=== PATIENT | male | born 2000 | race Native Hawaiian/Other Pacific Islander ===

== ENCOUNTER 2021-07-15 22:43 | Emergency (ER) | payer OTHER ==
--- NOTE | 2021-07-15 23:16 | ED Physician Documentation ---
History of Present Illness - Stated complaint Stated Complaint: R LEG SWOLLEN - Chief complaint Chief Complaint: Ext Problem - History obtained from History obtained from: Patient - History of Present Illness Timing: Yesterday Pain level now: 0 - Additonal information Additional information: c/o atraumatic RLE swelling distal to right knee down to ankle and foot. He had a large tattoo placed anterior right lower leg (also from just distal to knee down to just proximal to the ankle). Prashant fever. Denies pain, but notes mild paresthesias in foot. Review of Systems Constitutional: reports: Reviewed and negative Cardiac: reports: Pedal edema. denies: Chest pain / pressure, Calf pain Skin: denies: Rash Musculoskeletal: reports: Extremity swelling. denies: Extremity pain PD PAST MEDICAL HISTORY - Past Medical History Past Medical History: No - Past Surgical History Past Surgical History: No - Present Medications Home Medications: Ambulatory Orders Medication Instructions Recorded Confirmed Sulfamethox/Trimeth 800/160 1 each PO BID #14 tablet 07/16/21 [Bactrim Ds 800/160] - Allergies Allergies/Adverse Reactions: Allergies Allergy/AdvReac Type Severity Reaction Status Date / Time No Known Drug Allergies Allergy Verified 07/15/21 22:52 - Social History Does the pt smoke?: Yes Smoking Status: Current every day smoker Does the pt drink ETOH?: No Does the pt have substance abuse?: No - Immunizations Immunizations are current?: Yes PD ED PE NORMAL - Vitals Vital signs reviewed: Yes - General General: Alert and oriented X 3, No acute distress, Well developed/nourished - Derm Derm: Normal color, Warm and dry, No rash - Extremities Extremities: No tenderness to palpate, Normal ROM s pain, No calf tenderness / cord PD ED PE EXPANDED - Extremities Extremities: Pedal edema R (mild circumferential edema lower leg (immediately distal to knee) down to ankle and foot. ), Pedal Pulses Present, Other (large tatto anterior surface from lateral to medial aspects of RLE from just distal to knee down to just proximal to the ankle. There is no abnormal warmth to touch and no erythema). No: Right calf TTP/cord Results - Vitals Vitals: Vital Signs - 24 hr 07/15/21 07/16/21 22:46 00:51 Temperature 37 C Heart Rate 76 65 Respiratory 16 19 Rate Blood Pressure 138/83 H 138/85 H O2 Saturation 97 99 Oxygen O2 Source Room air - Rads (name of study) RLE US Radiology: Prelim report reviewed, See rad report PD MEDICAL DECISION MAKING - ED course Complexity details: reviewed results, re-evaluated patient, considered differential, d/w patient ED course: RLE swelling since yesterday, 1 week after large tattoo placed to right lower leg. Afebrile and no erythema . US negative for DVT but right inguinal lympadenopathy noted on US, likely reactive and thus antibiotic (clindamycin) given and prescribed. There is no crepitus on exam to suggest SQ gas (such as with NTI). Given return precautions, particularly if he develops pain, redness, fever Departure - Departure Disposition: 01 Home, Self Care Clinical Impression: Peripheral edema Condition: Good Instructions: ED Leg Swelling Unilateral Follow-Up: PAMELLA Leavitt [Provider Group] Prescriptions: Sulfamethox/Trimeth 800/160 [Bactrim Ds 800/160] 1 each PO BID #14 tablet Comments: As we discussed, the ultrasound does not show any blood clot(s), but it does show several enlarged lymph nodes at the top of your right leg. The most likely explanation of this finding would be an infection somewhere in the right leg; the lymph nodes draining the area typically become enlarged when fighting off an infection. While I do not see any obvious infection on exam, the swelling and the ultrasound finding are concerning enough to warrant an antibiotic and thus you were given the first dose of an antibiotic and a prescription has been electronically submitted to [facility] pharmacy in [place] for a one-week course. You should seek follow up for reevaluation within 2 days if possible. Discharge Date/Time: 07/16/21 01:25
--- NOTE | 2021-07-16 00:37 | Ultrasound Report ---
PROCEDURE: Duplex Ext Veins Right INDICATIONS: atraumatic swelling RLE TECHNIQUE: Real-time imaging, as well as color and pulse Doppler interrogation, were performed of the lower extr emity deep veins from the inguinal ligament to the popliteal fossa. COMPARISON: None. FINDINGS: The deep veins are normally compressible, and free of intraluminal thrombus. Color and pu lse Doppler demonstrate normal phasic intraluminal flow. There is normal augmentation response to di stal compression maneuver. Multiple prominent right inguinal lymph nodes are identified. These are l ikely reactive as they maintain normal reniform morphology and central fatty hilum. IMPRESSION: Negative for deep venous thrombosis of the right lower extremity. Subcutaneous soft tissue edema of the ankle and calf without organized fluid collection. Multiple prominent right inguinal lymph nodes. Reviewed by: Carlitos Amos MD on 07/16/2021 12:36 AM PST Approved by: Carlitos Amos MD on 07/16/2021 12:36 AM PST Station ID: [id number]
[2021-07-16] MEDS ORDERED: SULFAMETH/TRIMETH DS 800/160 MG TABLET PO STA (01:11)
[2021-07-16 01:25] VITALS: BP 138/85
== END 2021-07-16 01:25 | disposition home or self-care (01) ==
LOC: ED 22:43
DX: R60.0 Localized edema (principal); F17.200 Nicotine dependence, unspecified, uncomplicated
CPT/HCPCS: 93971; 99283; 99284; A9270